=== PATIENT | female | born 1995 | race Caucasian/White ===

== ENCOUNTER 2020-12-28 16:15 | Emergency (ER) | payer BC, SELFPAY ==
[2020-12-28 16:49] VITALS: BP 134/91; PULSE 75; RESP 16; TEMP 36.7; O2SAT 97; BMI 25.6
--- NOTE | 2020-12-28 17:05 | HMH.EDUTC ---
[facility] [place] Clinical Impression: Mastitis, left, acute Disposition: Home, Self-Care Condition on Discharge: Good Instructions: DI for Mastitis Additional Instructions: Warm compresses, olive oil or castor oil compresses, probiotics Prescriptions: Sulfamethoxazole/Trimethoprim [Bactrim DS tablet] 1 each PO BID 10 Days #20 tab Transmission Status: Pending to [id number] Referrals: Damián Ndiaye MD [Primary Care Provider] - Time of Disposition: 17:20 Medical Decision Making - Davion Inquiry Pt receiving controlled substance: No Vital Signs: 12/28/20 16:49 Temperature 98.1 F Temperature Source Oral Pulse Rate [Left] 75 Respiratory Rate 16 Blood Pressure [Right Arm] 134/91 H Blood Pressure Mean [Right Arm] 105 02 Sat by Pulse Oximetry 97 [facility] [place] - General Stated complaint: possible mastitis Time Seen by Provider: 12/28/20 17:05 Mode of Arrival: Ambulatory Source of Information: Patient Limitations: No Limitations Description of Symptoms (Recalled from Triage Doc. by RN): pt is 12 wks pp. pt is pumping exclusively. since Tue. she has had pain in her L breast. she is unable to express any milk from it at this time. pt is very sore, red and tender. HEENT Symptoms (Recalled from RN notes): No Resp Symptoms (Recalled from RN notes): No Skin Symptoms (Recalled from RN notes): No MS Symptoms (Recalled from RN notes): No Functional Status (Recalled from RN notes): na - History of Present Illness Provider Complaint: Mastitis left breast X 2 days. She is exclusively pumping. She has a history of clogs but has always been able to clear them. She has tried heat, massage, dangle pumping with no relief. Onset (ago): day(s) (2) Location: chest Radiation: non-radiation Relieving factors: none Exacerbating factors: none Associated symptoms: denies other symptoms Treatments prior to arrival: NSAID - Related Data Previous Rx's Medication Instructions Recorded Sulfamethoxazole/Trimethoprim 1 each PO BID 10 Days #20 tab 12/28/20 [Bactrim DS tablet] - Worker's Comp Is this a Worker's Comp case?: No [facility] History - Hepatitis A Screen Drug use history?: No High risk sexual behaviors?: No History of sexually transmitted infection?: No Currently employed?: No Childcare worker?: No Do you have indoor plumbing?: Yes Do you have electricity?: Yes Attestation statement:: This patient has been screened for Hepatitis A risk factors. ROS Obtained: Yes All systems reviewed & no additional complaints - Integumentary/Breasts Skin/Breast: Reports breast pain, Reports breast swelling Physical Exam - General General appearance: alert, in no apparent distress - Head Head exam: atraumatic, normocephalic - Eye Eye exam: Present: PERRL - ENT ENT exam: Present: normal oropharynx - Neck Neck exam: Present: normal inspection - Chest Chest inspection: Present: normal inspection, symmetric chest wall rise - Expanded Chest Exam Breast: left: erythema, swelling, tenderness - Respiratory Respiratory exam: Present: normal lung sounds bilaterally - Cardiovascular Cardiovascular exam: Present: regular rate, normal rhythm - Neurological Exam Neurological exam: Present: alert, oriented X3 - Psychiatric Psychiatric exam: Present: normal affect, normal mood - Skin Skin exam: Present: warm, dry
[2020-12-28 17:30] VITALS: BP 134/91; PULSE 75; RESP 16; TEMP 36.7
== END 2020-12-28 17:31 | disposition home or self-care (01) ==
PROVIDERS: Emergency Provider Physician Assistant; PCP Internal Medicine Adolescent Medicine
DX: N61.0 Mastitis without abscess (principal)
CPT/HCPCS: 99202; G0463

== ENCOUNTER 2024-03-19 15:27 | Emergency (ER) | payer BC, SELFPAY ==
[2024-03-19 15:45] VITALS: BP 127/80; PULSE 99; RESP 19; TEMP 36.7; O2SAT 98; BMI 32.8
--- NOTE | 2024-03-19 15:53 | EXP.UTC ---
Discharge Plan Disposition Patient Disposition: Home, Self-Care Condition: Good Prescriptions Prescriptions: New amoxicillin-pot clavulanate 875-125 mg Tablet 1 tab PO Q12H 7 Days Qty: 14 0RF No Action levocetirizine [Xyzal] 5 mg Tablet 5 mg PO DAILY PNV cmb#95-ferrous fumarate-FA [] 28 mg iron- 800 mcg Tablet 1 tab PO DAILY Referrals Follow up/Referrals: Damián Ndiaye MD [Primary Care Provider] - See instructions Activity Restrictions/Add. Instructions Additional Instructions/Restrictions: *Monitor Temp, Over the counter Motrin or Tylenol as directed/as needed Tylenol every 4 hours and Motrin every 6 hours (as long as your family doctor has told you that you can take it) for fever or pain. and straight to ER if unable to lower temp less than 101.0 after medication given *Warm salt water gargles may help to soothe the throat *Throat Lozenges? *Warm fluids like tea with honey may help to soothe the throat? *Sleep elevated *Humidifier/Vaporizer *Take medication as prescribed Follow up IMMEDIATELY for new or worsening symptoms or no Noticeable improvement over the next 48-72 hours. 911 for difficulty breathing or swallowing Clinical Impressions Clinical Impression: Sinusitis Qualifiers: Sinusitis location: unspecified location Chronicity: chronic Qualified Code(s): J32.9 - Chronic sinusitis, unspecified Instructions Patient Instructions: Sinusitis, DI for Sinusitis Print Language Print Language: [place] Discharge ED Provider: Johanny Fields [facility] General Stated complaint: poss sinus inf Time Seen by Provider: 03/19/24 15:53 History of Present Illness Provider Complaint: Patient states that she is 18wks OB States that she started a couple weeks ago with sinus pain and pressure and did a sinus rinse and thought it was getting better but then the symptoms returned a few days ago and worse States that she is having sinus pain and pressure and pressure behind her eyes Related Data Home Medications ?Medication ?Instructions ?Recorded ?Confirmed levocetirizine 5 mg tablet (Xyzal) 5 mg PO DAILY 03/19/24 03/19/24 vit no.95-ferrous 1 tab PO DAILY 03/19/24 03/19/24 fumarate 28 mg-folic acid 800 mcg tablet () Previous Rx's ?Medication ?Instructions ?Recorded amoxicillin 875 mg-potassium 1 tab PO Q12H 7 days #14 tabs 03/19/24 clavulanate 125 mg tablet Allergies Allergy/AdvReac Type Severity Reaction Status Date / Time No Known Allergies Allergy Verified 05/04/21 10:10 [facility] Disclaimer: The information contained in this section may have been updated after the patient was seen, as this information can be updated by other users. Medical History (Updated 03/19/24 @ 16:00 by Adriana Vaca RN) Asthma Social History (Updated 03/19/24 @ 15:59 by Johanny Fields APRN) Smoking Status: Unknown if ever smoked alcohol intake: never current occupational status: employed Travel in the last 8 weeks: None ROS Obtained: Yes All systems reviewed & no additional complaints except as documented and Yes Systems reviewed as appropriate & no additional complaints except as documented Constitutional Constitutional: Reports system reviewed and no additional complaints, except as documented, Reports as per HPI and Reports headache(s) ENT Ears, Nose, Mouth, and Throat: Reports system reviewed and no additional complaints, except as documented, Reports as per HPI, Reports headache(s), Reports sinus pain and Reports sinus pressure Cardiovascular Cardiovascular: Reports system reviewed and no additional complaints, except as documented and Reports as per HPI Respiratory Respiratory: Reports system reviewed and no additional complaints, except as documented and Reports as per HPI Gastrointestinal Gastrointestingal: Reports system reviewed and no additional complaints, except as documented and as per HPI Neurologic Neurologic: Reports headache(s) Physical Exam General General appearance: alert and in no apparent distress ENT ENT exam: Present mucous membranes moist Expanded ENT Exam Nose exam: Present sinus tenderness Throat exam: Present other (PND noted) Respiratory Respiratory exam: Present normal lung sounds bilaterally; Absent respiratory distress or wheezes Cardiovascular Cardiovascular exam: Present regular rate, normal rhythm and normal heart sounds Neurological Exam Neurological exam: Present alert, oriented X3 and normal gait Medical Decision Making Medical Records Screening: Per USPSTF and CDC recommendations, given the prevalence of disease in our region, it is our hospital?s policy to screen for HIV and viral Hepatitis for all patients aged 18 and over and those with ongoing risk factors. Davion Inquiry Pt receiving controlled substance: No Davion was queried for this patient: No Medical Decision Narrative: Patient is 18wks OB medication discussed with pharmacy
[2024-03-19 16:07] VITALS: BP 127/80; PULSE 99; RESP 19; TEMP 36.7; O2SAT 98
== END 2024-03-19 16:14 | disposition home or self-care (01) ==
PROVIDERS: Emergency Provider Nurse Practitioner; PCP Internal Medicine Adolescent Medicine
DX: J32.9 Chronic sinusitis, unspecified (principal); J34.89 Other specified disorders of nose and nasal sinuses
CPT/HCPCS: 99212; G0381